=== PATIENT | male | born 1955 | race Caucasian/White ===

== ENCOUNTER 2018-09-16 19:02 | Emergency (ER) | payer OTHER ==
[2018-09-16 21:03] LABS: URINE PH (Dip) POC 5.5 (5.0-8.5)
[2018-09-16 21:03] LABS: URINE BLOOD (Dip) POC Negative (NEGATIVE); URINE GLUCOSE (Dip) POC Negative (NEGATIVE); URINE KETONES (Dip) POC Negative (NEGATIVE); URINE LEUKOCYTE EST (Dip) POC Negative (NEGATIVE); URINE NITRITE (Dip) POC Negative (NEGATIVE); URINE TOTAL PROTEIN POC Trace (NEGATIVE)
[2018-09-16 21:04] LABS: ADD MAN DIFF? NO
[2018-09-16 21:06] LABS: BASOPHIL # 0.1 10^3/ul (0.0-0.1); BASOPHILS % 0.8 % (0.0-2.0); EOSINOPHILS # 0.3 10^3/ul (0.0-0.5); EOSINOPHILS % 4.5 % (0.0-7.0); HEMATOCRIT 40.4 % (42.0-52.0); HEMOGLOBIN 13.4 g/dl (14.0-18.0); LYMPHOCYTES # 2.5 10^3/ul (0.8-2.9); MEAN CORPUSCULAR HEMOGLOBIN 29.5 pg (29.0-33.0); MEAN CORPUSCULAR HGB CONC 33.2 g/dl (32.0-37.0); MEAN PLATELET VOLUME 9.3 fl (7.4-10.4); MONOCYTE # 0.8 10^3/ul (0.3-0.9); MONOCYTES % 10.3 % (0.0-11.0); NEUTROPHIL # 3.9 10^3/ul (1.6-7.5); NEUTROPHILS % 51.1 % (39.0-77.0); PLATELET COUNT 269 10^3/UL (140-415); RED BLOOD COUNT 4.54 10^6/ul (4.70-6.10); RED CELL DISTRIBUTION WIDTH 12.8 % (11.5-14.5)
[2018-09-16 21:06] LABS: WHITE BLOOD COUNT 7.6 10^3/ul (4.8-10.8)
[2018-09-16 21:13] LABS: ANION GAP 6 (5-13); BLOOD UREA NITROGEN 27 mg/dl (7-20); CALCIUM 9.3 mg/dl (8.4-10.2); CARBON DIOXIDE 27 mmol/L (21-31); CHLORIDE 107 mmol/L (97-110); CREATININE 1.52 mg/dl (0.61-1.24); Estimated GFR 47 mL/min (>60); GLUCOSE 87 mg/dl (70-220); SODIUM 140 mmol/L (135-144)
[2018-09-16 21:14] LABS: ETHANOL < 10.0 mg/dl (0-0)
[2018-09-16] MEDS: ONDANSETRON 4 MG INJ IV (21:19)
[2018-09-16 21:24] LABS: TROPONIN-I 0.102 ng/ml (0.000-0.120)
[2018-09-16 21:27] LABS: AMPHETAMINE/METHAMPHETAMINE Negative (NEGATIVE); BARBITURATES Negative (NEGATIVE); BENZODIAZEPINES Negative (NEGATIVE); CANNABINOIDS Negative (NEGATIVE); COCAINE Negative (NEGATIVE); OPIATES Negative (NEGATIVE)
== END 2018-09-16 23:33 | disposition home or self-care (01) ==
LOC: E/R 19:02
DX: D64.9 Anemia, unspecified (principal); N28.9 Disorder of kidney and ureter, unspecified
CPT/HCPCS: 36415; 70450; 71045; 80048; 80307; 81003; 84484; 85025; 93005; 99285-25